=== PATIENT | male | born 1940 | race Caucasian/White ===

== ENCOUNTER 2019-05-19 17:29 | Inpatient (IN) | payer OTHER ==
[~2019-05-19] VITALS: Ht 165.1 cm; Wt 87.7 kg
[2019-05-19] VITALS (7 sets, daily range): BP systolic 99–122; BP diastolic 58–67
[2019-05-19] MEDS ORDERED: ASA81BEC PO (17:50)
[2019-05-19] MEDS ORDERED: LEVETIRACETAM500 M1 PO (17:50)
[2019-05-19] MEDS ORDERED: DULOXETINE HCL60 MG PO (17:51)
[2019-05-19] MEDS ORDERED: GRALISE600 MG PO (17:51)
[2019-05-19 17:52] LABS: HEMATOCRIT 35.7 % (42.0-52.0); HEMOGLOBIN 11.8 gm/dL (14.0-18.0); NUCLEATED RBCS 0 /100WBC; PLATELET COUNT* 293 thou/uL (150-400); RBC 3.92 mil/uL (4.50-6.00); RDW-CV 13.3 % (10.5-14.5); WBC 11.8 thou/uL (4.0-11.0)
[2019-05-19] MEDS ORDERED: MINIPRESS2 MG PO (17:52)
[2019-05-19] MEDS ORDERED: ABILIFY 5 MG TAB5 MG PO (17:52)
[2019-05-19] MEDS ORDERED: ISOSORBIDE DINI30 MG PO (17:53)
[2019-05-19] MEDS ORDERED: RANEXA1000 MG PO (17:53)
[2019-05-19] MEDS ORDERED: OMEPRAZOLE 20 M20 M1 PO (17:53)
[2019-05-19] MEDS ORDERED: LIPITOR40 MG PO (17:53)
[2019-05-19] MEDS ORDERED: MELATIN3 MG PO (17:54)
[2019-05-19] MEDS ORDERED: NOVOLIN 70100 UNIT/3 SUBQ (17:54)
[2019-05-19] MEDS ORDERED: LANTUS SUBQ (17:55)
[2019-05-19 17:56] LABS: CALCIUM 9.7 mg/dL (8.5-10.1); CREATININE 1.3 mg/dL (0.6-1.3); POTASSIUM 4.8 mmol/L (3.5-5.1)
[2019-05-19] MEDS ORDERED: PROSCAR 5MG TABL5 MG PO (17:56)
[2019-05-19] MEDS ORDERED: METFORMIN HCL500 M3 PO (17:56)
[2019-05-19 17:58] LABS: INR 1.1
[2019-05-19] MEDS ORDERED: KADIAN30 MG PO (18:03)
[2019-05-19 18:06] LABS: ALBUMIN 3.2 g/dL (3.4-5.0); TOTAL BILIRUBIN 0.4 mg/dL (<0.1-1.0); TOTAL PROTEIN 6.8 g/dL (6.4-8.2)
[2019-05-19 18:12] LABS: BE 1.7 mmol/L (-2 to +3); PO2 73.4 mmHg (75.0-100.0)
[2019-05-19 18:13] LABS: PCO2 61.6 mmHg (35.0-45.0); pH 7.299 (7.340-7.450)
[2019-05-19 18:27] LABS: ABSOLUTE EOSINOPHILS 0.1 thou/uL (0.0-0.7); ABSOLUTE LYMPHOCYTES 1.5 thou/uL (0.8-5.3); ABSOLUTE MONOCYTES 0.4 thou/uL (0.0-1.2); ABSOLUTE NEUTROPHILS 9.8 thou/uL (1.6-8.1)
[2019-05-19 18:28] LABS: PLATELET ESTIMATE ADEQUATE
[2019-05-20] VITALS (22 sets, daily range): BP systolic 96–138; BP diastolic 48–91
--- NOTE | 2019-05-20 05:36 | NUR ---
VITALS STABLE, AFEBRILE. PT ABLE TO ANSWER QUESTIONS APPROPRIATELY WHEN AWAKE, CONFUSED TO WHERE HE IS AT TIMES. SLEPT THROUGH MOST OF THE NIGHT. Q2 TURNS FOR SKIN INTEGRITY. UNEVENTFUL NIGHT OTHERWISE. CALL LIGHT WITHIN REACH.
--- NOTE | 2019-05-20 18:11 | NUR ---
PT ALERT AND ORIENTED X2. VSS. OFF OF BIPAP THIS MORNING. O2 SATS >92% IN NC 4L/MIN. ATE 30-40% OF HIS DIET. NS CONTD AT 100 MLS/HR. BM ONCE THIS SHIFT. Q2 TURNS FOR SKIN INTEGRITY. FAMILY AT THE BEDSIDE THE WHOLE DAY. INSULIN PER PROTOCOL. PROGRESSING TOWARDS THE GOAL.
[2019-05-21] VITALS (18 sets, daily range): BP systolic 95–143; BP diastolic 43–73
[2019-05-21 09:03] LABS: CHOLESTEROL 115 mg/dL (<200); HDL CHOLESTEROL 56 mg/dL (>40); LDL CHOLESTEROL 46 mg/dL (<100); TC:HDL 2.1 Ratio (Not establshd); TRIGLYCERIDE 68 mg/dL (<150); VLDL 14 mg/dL (<40)
[2019-05-21 09:04] LABS: SERUM ASSESSMENT Clear
[2019-05-21 09:05] LABS: ABSOLUTE MONOCYTES 0.6 thou/uL (0.0-1.2); ABSOLUTE NEUTROPHILS 11.4 thou/uL (1.6-8.1); BASOPHILS 0.1 %; HEMATOCRIT 32.1 % (42.0-52.0); HEMOGLOBIN 10.6 gm/dL (14.0-18.0); MCH 29.6 pg (26.0-34.0); MCV 89.8 fL (80.0-100.0); MONOCYTES 4.8 %; MPV 7.9 fl. (7.2-11.1); NUCLEATED RBCS 0 /100WBC; PLATELET COUNT* 288 thou/uL (150-400); POLYS 87.1 %; RBC 3.57 mil/uL (4.50-6.00); RDW-CV 13.1 % (10.5-14.5); WBC 13.1 thou/uL (4.0-11.0)
[2019-05-21 09:11] LABS: ALBUMIN 2.7 g/dL (3.4-5.0); CALCIUM 8.8 mg/dL (8.5-10.1); CREATININE 1.1 mg/dL (0.6-1.3); POTASSIUM 4.6 mmol/L (3.5-5.1); TOTAL BILIRUBIN 0.4 mg/dL (<0.1-1.0); TOTAL PROTEIN 5.4 g/dL (6.4-8.2)
--- NOTE | 2019-05-21 10:15 | NUR ---
SPOKE WITH PT. HE WAS ALERT AND ORIENTED. HE SAID HE LIVES WITH HIS . SHE SHOULD BE HERE SHORTLY. HE SAID HE HAS HOME O2. CAN'T REMEMBER NAME OF CO. ALSO HAS A WALKER,CANE AND SCOOTER FOR WALKING LONG DISTANCES. HE SAID HE CAN WALK HOUSEHOLD DISTANCE. HE SAID THE DC HAS ARRANGED MOST OF HIS EQUIPMENT AND HOME HEALTH. HE SEES DR.AVAN GARCIA THROUGH A DC SATELITE OFFICE IN . CM WILL FOLLOW.
--- NOTE | 2019-05-21 10:37 | NUR ---
Nutrition: Pt admitted with resp failure. Seen for nsg risk 2 points. No apparent wt loss - admit wt 186#, current wt 210#. Please reweigh for accuracy. Per ICU rounds, RN stated pt is eating well. CHO controlled diet. RD changed oral supplement to Glucerna shake for better BG control. BG 144, alb 2.7. Per RN, pt tolerated Ground foods, which he is getting. Tolerates bipap. H/o DM, COPD, epilepsy, achalasia. Multiple interventions for achalasia without success - pt just takes small bites of foods. Considder Mild risk, no other nutrition interventions needed at this time.
--- NOTE | 2019-05-21 16:24 | EKG ---
[place] [address] ELECTROCARDIOGRAM REPORT Name: DOMI MILLER Room: [address] ADM IN M.R.#: [id number] Admission: 05/19/19 Attend Phys: Erika Bush Discharge: Date of : 42 Report #: [id number] THIS REPORT FOR: //name// [facility] ED Test Date: 2019-05-19 Test Time: 17:39:43 Pat Name: DOMI MILLER Department: Room: [facility] Gender: M Associate Director Data [employer] Analytics: : 1940 Requested By: Norm Yang Order Number: [id number] MD: Shahram Alatorre Measurements Intervals [place] Rate: 106 P: 0 AK: QRS: -6 QRSD: 117 T: -9 QT: 364 QTc: 484 Interpretive Statements sinus tachycardia with first degree av block Nonspecific intraventricular conduction delay Borderline repol abnormality, diffuse leads No previous ECG available for comparison Electronically Signed On 05-21-2019 16:23:56 CDT by Shahram Alatorre [email or web address] <ELECTRONICALLY SIGNED> By: Shahram Alatorre MD, [facility] 05/21/19 1623 1739 1739 Shahram Alatorre MD, [facility] /EPI
--- NOTE | 2019-05-21 16:52 | NUR ---
PT ALERT, BASELINE CONFUSION PRESENT, FAMILY AT THE BEDSIDE. VSS. O2 SUPPORT DECREASED TO 2L NC. OUT OF BED, STB ASSIST, SAT IN A CHAIR FOR ABOUT 2 HOURS. BM TWICE THIS SHIFT, USED BSC. TOLERATING GROUND DIET. INSULIN PER PROTOCOL. WALKED FEW STEPS WITH THE HELP OF WALKER. PT HELPS WITH Q2 TURNS WHILE ON BED. REPORT GIVEN TO KALE PRINCE, TELE.
--- NOTE | 2019-05-21 17:13 | 2DMMODE ---
[place] [address] 2 D/M-MODE ECHOCARDIOGRAM Name: DOMI MILLER Room: [address] IN [facility]#: [id number] Admission: 05/19/19 Attend Phys: Srikanth Schneider Discharge: Date of : 42 Date of Service: 05/21/19 1712 Report #: [id number] THIS REPORT FOR: //name// APPROVED REPORT Study performed: 05/21/2019 10:48:50 EXAM: Comprehensive 2D, Doppler, and color-flow Echocardiogram Patient Location: In-Patient Room #: 005 Status: routine BSA: 2.02 HR: 69 bpm BP: 102/60 mmHg Rhythm: NSR Other Information Study Quality: Good Indications Dyspnea 2D Dimensions IVSd: 11.28 (7-11mm) LVOT Diam: 21.25 (18-24mm) LVDd: 45.52 mm PWd: 9.59 (7-11mm) Ascending Ao: 32.95 (22-36mm) LVDs: 32.17 (25-40mm) Aortic Root: 36.63 mm Volumes Left Atrial Volume (Systole) LA ESV Index: 33.10 mL/m2 Aortic Valve AoV Peak Manan.: 1.50 m/s AO Peak Gr.: 8.97 mmHg LVOT Max P.27 mmHg AO Mean Gr.: 4.67 mmHg LVOT Mean P.43 mmHg LVOT Max V: 1.03 m/s AO V2 VTI: 32.98 cm LVOT Mean V: 0.73 m/s TORY (VTI): 2.57 cm2 LVOT V1 VTI: 23.90 cm Mitral Valve E/A Ratio: 0.75 MV Decel. Time: 200.33 ms MV E Max Manan.: 0.80 m/[place] [address] 2 D/M-MODE ECHOCARDIOGRAM Name: DOMI MILLER Room: [address] IN .R.#: [id number] Admission: 05/19/19 Attend Phys: Srikanth Schneider Discharge: Date of : 42 Date of Service: 05/21/19 1712 Report #: [id number] MV PHT: 58.09 ms MVA (PHT): 3.79 cm2 TDI E/Lateral E': 6.15 E/Medial E': 8.00 Medial E' Manan.: 0.10 m/s Lateral E' Manan.: 0.13 m/s Pulmonary Valve PV Peak Manan.: 1.55 m/s PV Peak Gr.: 9.60 mmHg Tricuspid Valve RAP Estimate: 5.00 mmHg TR Peak Gr.: 27.88 mmHg RVSP: 32.00 mmHg PA Pressure: 32.00 mmHg Left Ventricle The left ventricle is normal size. There is normal LV segmental wall motion. There is normal left ventricular wall thickness. Left ventricular systolic function is normal. The left ventricular ejection fraction is within the normal range. LVEF is 55-60%. Right Ventricle The right ventricle is normal size. The right ventricular systolic function is normal. Atria The left atrium size is normal. The right atrium size is normal. Aortic Valve Mild aortic valve sclerosis. No aortic regurgitation is present. There is no aortic valvular stenosis. Mitral Valve There is mitral annular calcification. There is no mitral valve regurgitation noted. No evidence of mitral valve stenosis. Tricuspid Valve The tricuspid valve is normal in structure. Trace tricuspid regurgitation. Mild pulmonary hypertension. Pulmonic Valve The pulmonary valve is normal in structure. [place] [address] 2 D/M-MODE ECHOCARDIOGRAM Name: DOMI MILLER Room: [address] IN [facility]#: [id number] Admission: 05/19/19 Attend Phys: Srikanth Schneider Discharge: Date of : 42 Date of Service: 05/21/19 1712 Report #: [id number] Great Vessels The aortic root is normal in size. IVC is normal in size and collapses >50% with inspiration. Pericardium There is no pericardial effusion. <Conclusion> The left ventricle is normal size. There is normal left ventricular wall thickness. Left ventricular systolic function is normal. The left ventricular ejection fraction is within the normal range. LVEF is 55-60%. The right ventricle is normal size. The left atrium size is normal. Mild aortic valve sclerosis. No aortic regurgitation is present. There is no aortic valvular stenosis. There is mitral annular calcification. There is no mitral valve regurgitation noted. No evidence of mitral valve stenosis. The tricuspid valve is normal in structure. IVC is normal in size and collapses >50% with inspiration. There is no pericardial effusion. There is normal LV segmental wall motion. <ELECTRONICALLY SIGNED> By: Best Hernandez MD, FACC 05/21/191711 11 11 Best Hernandez MD, FACC /INF
[2019-05-22] VITALS: BP 123/66
[2019-05-22 04:00] VITALS: BP 126/72
[2019-05-22 07:00] VITALS: BP 141/75
--- NOTE | 2019-05-22 10:05 | NUR ---
INITAL ASSESSMENT COMPLETED CHARTED. VSS. TRACING NSR ON MONITOR. PT IS A& O AND ABLE TO VOICE ALL NEEDS. PT DENIES PAIN, SOA, N/V/D. HOURLY ROUNDING AND FALL PRECAUTIONS IN PLACE FOR PT SAFETY. CLWR.
[2019-05-22 11:55] VITALS: BP 118/61
[2019-05-22] MEDS ORDERED: MEDROL DOSPAK21 TA1 PO (15:00)
[2019-05-22] MEDS ORDERED: LEVAQUIN 750 M750 MG PO (15:03)
[2019-05-22 15:27] VITALS: BP 118/61
== END 2019-05-22 16:16 | disposition home or self-care (01) | DRG 871 ==
LOC: M.ERS 17:29 → M.ICU 18:33 → M.TBA-ER 18:33 → M.2W 18:33 → M.ERS 18:54 → M.ICU 19:07 → M.2W 05-21 17:02
PROVIDERS: Emergency Medicine Emergency Medical Services; Family Medicine; Registered Nurse; ADMIT Internal Medicine
PROC: 5A09357 Assistance with Respiratory Ventilation, Less than 24 Consecutive Hours, Continuous Positive Airway Pressure (ICD-10-PCS; principal; 2019-05-19)
PROC: 5A09357 Assistance with Respiratory Ventilation, Less than 24 Consecutive Hours, Continuous Positive Airway Pressure (ICD-10-PCS; 2019-05-20)
PROC: 5A09357 Assistance with Respiratory Ventilation, Less than 24 Consecutive Hours, Continuous Positive Airway Pressure (ICD-10-PCS; 2019-05-21)
DX: A41.9 Sepsis, unspecified organism (principal); J96.01 Acute respiratory failure with hypoxia; J18.9 Pneumonia, unspecified organism; I21.A1 Myocardial infarction type 2; J44.0 Chronic obstructive pulmonary disease with (acute) lower respiratory infection; J44.1 Chronic obstructive pulmonary disease with (acute) exacerbation; E11.9 Type 2 diabetes mellitus without complications; Z96.619 Presence of unspecified artificial shoulder joint; Z96.659 Presence of unspecified artificial knee joint; G40.909 Epilepsy, unspecified, not intractable, without status epilepticus; E78.5 Hyperlipidemia, unspecified; K22.0 Achalasia of cardia; I25.10 Atherosclerotic heart disease of native coronary artery without angina pectoris; Z87.01 Personal history of pneumonia (recurrent); Z95.1 Presence of aortocoronary bypass graft; Z88.1 Allergy status to other antibiotic agents; Z79.899 Other long term (current) drug therapy; Z79.82 Long term (current) use of aspirin; Z79.4 Long term (current) use of insulin; Z79.84 Long term (current) use of oral hypoglycemic drugs; Z90.49 Acquired absence of other specified parts of digestive tract; Z82.49 Family history of ischemic heart disease and other diseases of the circulatory system; Z87.891 Personal history of nicotine dependence; Z95.5 Presence of coronary angioplasty implant and graft